=== PATIENT | female | born 2005 | race Caucasian/White ===

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

== ENCOUNTER 2025-03-12 09:49 | Outpatient (CLI) | payer BC, SELFPAY | END 2025-03-12 09:50 | disposition home or self-care (01) | PROVIDERS: Visit Provider Nurse Practitioner Family | DX: R23.3 Spontaneous ecchymoses (principal); N92.1 Excessive and frequent menstruation with irregular cycle; R53.83 Other fatigue; R82.90 Unspecified abnormal findings in urine; Z83.2 Family history of diseases of the blood and blood-forming organs and certain disorders involving the immune mechanism | CPT/HCPCS: 80076; 82728; 85300; 85379; 85610; 87086 ==